=== PATIENT | female | born 1935 | race Caucasian/White ===

== ENCOUNTER 2017-10-12 20:34 | Inpatient (IN) | payer MEDICARE, OTHER ==
--- NOTE | 2017-10-12 20:42 | ERPHSYRPT ---
- History of Present Illness Time Seen by Provider: 10/12/17 20:34 Source: patient Exam Limitations: no limitations Physician History: YESTERDAY AT HOME PT WAS IN THE KITCHEN AND TURNED TO TALK TO HER WHEN SHE FELL BACKWARDS ONTO THE KITCHEN TABLE WITH RESULTANT BILATERAL HIP PAIN. PT DENIES CHEST PAIN, SHORTNESS OF AIR, TINGLING/NUMBNESS, WEAKNESS, ABDOMINAL PAIN. Allergies/Adverse Reactions: No Known Drug Allergies Allergy (Verified 10/12/17 20:57) Hx Tetanus, Diphtheria Vaccination/Date Given: Yes (unknown) Hx Influenza Vaccination/Date Given: No (unknown) Hx Pneumococcal Vaccination/Date Given: No (unknown) - Review of Systems Constitutional: No Fever, No Chills Respiratory: No Dyspnea Cardiac: No Chest Pain Abdominal/Gastrointestinal: No Abdominal Pain Musculoskeletal: Other (BILATERAL HIP PAIN) Neurological: No Headache All Other Systems: Reviewed and Negative - Past Medical History Pertinent Past Medical History: Yes Neurological History: Alzheimer's Disease, Dementia, TIA ENT History: Cataracts Cardiac History: Angina, Arrhythmia, Hypertension, Myocardial Infarction ([place]) Respiratory History: No Pertinent History Endocrine Medical History: Hypothyroidism Musculoskeletal History: Osteoarthritis GI Medical History: No Pertinent History History: No Pertinent History Psycho-Social History: Depression Female Reproductive Disorders: No Pertinent History Other Medical History: possible thyroid cancer (pt never followed up with dr) - Past Surgical History Past Surgical History: Yes Neuro Surgical History: No Pertinent History Cardiac: CABG, Cardiac Stent Respiratory: No Pertinent History Gastrointestinal: Hernia Repair Genitourinary: No Pertinent History Musculoskeletal: No Pertinent History Female Surgical History: No Pertinent History Other Surgical History: 3 hernia repairs - Social History Smoking Status: Former smoker Exposure to second hand smoke: No Drug Use: none Patient Lives Alone: No (lives at home with .) - Nursing Vital Signs Nursing Vital Signs: Initial Vital Signs Temperature 97.2 F 10/12/17 20:49 Pulse Rate 82 10/12/17 20:49 Respiratory Rate 18 10/12/17 20:49 Blood Pressure 198/110 10/12/17 20:49 O2 Sat by Pulse Oximetry 98 10/12/17 20:49 Pain Scale Pain Intensity 3 - [place] Coma Score Best Eye Response ([place]): (4) open spontaneously Best Verbal Response ([place]): (5) oriented Best Motor Response ([place]): (6) obeys commands [place] Total: 15 - Physical Exam General Appearance: alert Head Injury: no evidence of injury Eye Exam: eyes nml inspection ENT Exam: airway nml, nml ext.inspection, other (DRY mm), No decreased hearing Neck Exam: trachea midline Respiratory/Chest Exam: normal breath sounds Cardiovascular Exam: normal heart sounds Gastrointestinal Exam: soft, normal bowel sounds, hernia (LARGE ABDOMINAL HERNIA (ONGOING)) Back Exam: normal inspection, No vertebral tenderness Extremity Exam: normal range of motion, tenderness (MILD TENDERNESS OVER BOTH HIPS WITHOUT BRUISING OR ABRASION), No pedal edema Peripheral Pulses: dorsalis-pedis (R): 2+, dorsalis-pedis (L): 2+ Neurologic Exam: alert, cooperative Skin Exam: warm, dry - Course Nursing assessment & vital signs reviewed: Yes Ordered Tests: Active Orders 24 hr Category Date Time Status IV Insertion STAT Care 10/12/17 21:26 Active FEMUR Stat Exams 10/12/17 20:48 Taken FEMUR Stat Exams 10/12/17 22:47 Taken PELVIS (1 OR 2 VIEWS) Stat Exams 10/12/17 20:48 Taken PELVIS WITHOUT CONTRAST [CT] Stat Exams 10/12/17 22:08 Taken BMP Stat Lab 10/12/17 21:00 Completed CBC W DIFF Stat Lab 10/12/17 21:00 Completed UA W/ MICROSCOPIC Stat Lab 10/12/17 23:17 Completed Medication Summary Discontinued Medications Generic Name Dose Route Start Last Admin Trade Name Mathieu PRN Reason Stop Dose Admin Clonidine 0.1 mg 10/12/17 20:50 10/12/17 20:56 Catapres 0.1 Mg PO 10/12/17 20:51 0.1 mg STAT ONE Administration Clonidine Confirm 10/12/17 20:54 Catapres 0.1 Mg Administered 10/12/17 20:55 Dose 0.1 mg .ROUTE .STK-MED ONE Sodium Chloride 1,000 mls @ 999 mls/hr 10/12/17 21:26 10/12/17 22:06 Sodium Chloride 0.9% 1000 Ml IV 10/12/17 22:26 999 mls/hr .Q1H1M STA Administration Sodium Chloride Confirm 10/12/17 21:42 Sodium Chloride 0.9% 1000 Ml Administered 10/12/17 21:43 Dose 1,000 mls @ ud .ROUTE .STK-MED ONE Lab/Rad Data: Laboratory Result Diagrams 10/12/17 21:00 10/12/17 21:00 Laboratory Results 10/12/17 10/12/17 10/12/17 Range/Units 23:17 21:00 21:00 WBC 9.2 (4.0-10.5) K/mm3 RBC 4.75 (4.1-5.4) M/mm3 Hgb 13.3 (12.0-16.0) gm/dl Hct 41.3 (35-47) % MCV 86.9 (78-100) fl MCH 28.0 (26-32) pg MCHC 32.2 (32-36) g/dl RDW 14.0 (11.5-14.0) % Plt Count 264 (150-450) K/mm3 MPV 10.8 H (6-9.5) fl Gran % 79.3 H (36.0-66.0) % Lymphocytes % 11.3 L (24.0-44.0) % Monocytes % 8.5 (0.0-12.0) % Eosinophils % 0.8 (0.00-5.0) % Basophils % 0.1 (0.0-0.4) % Basophils # 0.01 (0-0.4) Sodium 138 (136-145) mEq/L Potassium 4.1 (3.5-5.1) mEq/L Chloride 102 (98-107) mEq/L Carbon Dioxide 26.4 (21-32) mEq/L Anion Gap 13.6 (5-15) MEQ/L BUN 49 H (9-20) mg/dL Creatinine 1.60 H (0.55-1.30) mg/dl Estimated GFR 33 ML/MIN Glucose 129 H (70-110) MG/DL Calcium 9.5 (8.5-10.1) mg/dL Ur Collection Type CATH Urine Color YELLOW (YELLOW) Urine Appearance CLEAR (CLEAR) Urine pH 5.0 (5-6) Ur Specific [place] 1.015 (1.005-1.025) Urine Protein TRACE (Negative) Urine Ketones NEGATIVE (NEGATIVE) Urine Blood NEGATIVE (0-5) Garth/ul Urine Nitrite NEGATIVE (NEGATIVE) Urine Bilirubin NEGATIVE (NEGATIVE) Urine Urobilinogen NORMAL (0-1) mg/dL Ur Leukocyte Esterase NEGATIVE (NEGATIVE) Urine Microscopic RBC 0-2 (0-2) /HPF Urine Microscopic WBC 0-2 (0-5) /HPF Ur Epithelial Cells FEW (FEW) /HPF Amorphous Crystals FEW (NEGATIVE) /HPF Urine Bacteria FEW (NEGATIVE) /HPF Urine Culture Reflexed NO (NO) Urine Glucose NEGATIVE (NEGATIVE) mg/dL Specimen Received 10/12/17 9878 - Progress Discussed with : Saúl (OBS - [id number]) - Departure Time of Disposition: 00:21 Departure Disposition: Observation Clinical Impression: PELVIC FRACTURE, DEHYDRATION, HTN, ALZHEIMER'S DISEASE, HYPOTHROIDISM, ARTHRITIS, DEPRESSION Condition: Stable Critical Care Time: No Referrals: SILVINO MILLER [Primary Care Provider] -
[2017-10-12] MEDS ORDERED: Catapres 0.1 MG PO ONE (20:50)
[2017-10-12] MEDS ORDERED: Catapres 0.1 MG ONE (20:54)
[2017-10-12 21:04] LABS: BASOPHIL % 0.1 % (0.0-0.4); Basophil (Absolute #) 0.01 (0-0.4); Eosinophil % 0.8 % (0.00-5.0); Eosinophil (Absolute #) 0.07 (0-0.5); Granulocyte Absolute (ANC) 7.28 (1.4-6.9); Granulocytes % 79.3 % (36.0-66.0); Hematocrit 41.3 % (35-47); Hemoglobin 13.3 gm/dl (12.0-16.0); Lymphocyte (Absolute #) 1.04 (1.0-4.6); Lymphocytes % 11.3 % (24.0-44.0); Mean Cell Volume 86.9 fl (78-100); Mean Corpuscular Hgb Concent. 32.2 g/dl (32-36); Mean Platelet Volume 10.8 fl (6-9.5); Monocyte (Absolute #) 0.78 (0.0-1.3); Monocytes % 8.5 % (0.0-12.0); Platelet Count 264 K/mm3 (150-450); Red Blood Count 4.75 M/mm3 (4.1-5.4); White Blood Count 9.2 K/mm3 (4.0-10.5)
[2017-10-12 21:19] LABS: ANION GAP 13.6 MEQ/L (5-15); Calcium 9.5 mg/dL (8.5-10.1); Carbon Dioxide 26.4 mEq/L (21-32); Creatinine 1 1.6 mg/dl (0.55-1.30); Potassium 4.1 mEq/L (3.5-5.1)
[2017-10-12] MEDS ORDERED: Sodium Chloride 0.9% 1000 ML 1,000 ML IV STA (21:26)
[2017-10-12] MEDS ORDERED: Sodium Chloride 0.9% 1000 ML 1,000 ML ONE (21:42)
[2017-10-12 23:29] LABS: Appearance CLEAR (CLEAR); Bilirubin NEGATIVE (NEGATIVE); Blood NEGATIVE Ery/ul (0-5); Glucose NEGATIVE (NEGATIVE); Ketones NEGATIVE (NEGATIVE); Leukocyte Esterase NEGATIVE (NEGATIVE); Nitrite NEGATIVE (NEGATIVE); Protein,Urine Dip TRACE (Negative); Specific Gravity 1.015 (1.005-1.025); Urobilinogen NORMAL mg/dL (0-1)
[2017-10-12 23:30] LABS: Amourphous Crystal FEW /HPF (NEGATIVE); Bacteria FEW /HPF (NEGATIVE); Epithelial Cells FEW /HPF (FEW); WBC 0-2 /HPF (0-5)
[2017-10-13] MEDS ORDERED: Phenergan 25 MG INJ IV PRN (02:07)
[2017-10-13] MEDS ORDERED: TYLENOL 325 MG PO PRN (02:07)
[2017-10-13] MEDS ORDERED: Sodium Chloride 0.9% 1000 ML 1,000 ML IV SCH (02:07)
[2017-10-13] MEDS: MORPHINE SULFATE 4 MG INJ IV PRN (03:19)
[2017-10-13 05:43] LABS: BASOPHIL % 0.3 % (0.0-0.4); Basophil (Absolute #) 0.02 (0-0.4); Eosinophil % 2.2 % (0.00-5.0); Eosinophil (Absolute #) 0.15 (0-0.5); Granulocyte Absolute (ANC) 5.02 (1.4-6.9); Granulocytes % 74.3 % (36.0-66.0); Hematocrit 35.4 % (35-47); Hemoglobin 11.3 gm/dl (12.0-16.0); Lymphocyte (Absolute #) 0.99 (1.0-4.6); Lymphocytes % 14.6 % (24.0-44.0); Mean Cell Volume 88.7 fl (78-100); Mean Corpuscular Hemoglobin 28.3 pg (26-32); Mean Corpuscular Hgb Concent. 31.9 g/dl (32-36); Mean Platelet Volume 11.2 fl (6-9.5); Monocyte (Absolute #) 0.58 (0.0-1.3); Monocytes % 8.6 % (0.0-12.0); Platelet Count 206 K/mm3 (150-450); Red Blood Count 3.99 M/mm3 (4.1-5.4); Red Cell Distribution Width 13.8 % (11.5-14.0); White Blood Count 6.8 K/mm3 (4.0-10.5)
[2017-10-13 06:27] LABS: ALBUMIN 2.9 g/dL (3.4-5.0); ANION GAP 10.5 MEQ/L (5-15); BILIRUBIN,TOTAL 0.7 mg/dL (0.2-1.0); Calcium 8.6 mg/dL (8.5-10.1); Carbon Dioxide 25.9 mEq/L (21-32); Creatinine 1 1.38 mg/dl (0.55-1.30); Potassium 4.1 mEq/L (3.5-5.1); Total Protein 6.7 gm/dL (6.4-8.2)
[2017-10-13] MEDS ORDERED: APRESOLINE 20 MG/ML INJ IV PRN (08:39)
--- NOTE | 2017-10-13 08:41 | XRAY ---
Indication: Pain following fall. Comparison: None 2 views of the right femur demonstrates osteopenia, moderate tricompartmental knee degenerative changes, heavy scattered vascular calcifications, scattered vascular clips, and CT proven right inferior pubic bone fracture.
--- NOTE | 2017-10-13 08:41 | XRAY ---
Indication: Pain following fall. Multiple contiguous axial images obtained through the pelvis with special attention to the osseous structures. Sagittal and coronal reformatted images obtained. Comparison: None There is osteopenia, mild degenerative changes of both hips, mild degenerative changes of the lower lumbar spine, and heavy scattered vascular calcifications. Nondisplaced fracture seen of the right inferior pubic ramus. Mild scattered colonic fecal debris and colonic diverticulosis. Impression: 1. Nondisplaced right inferior pubic ramus fracture. 2. Osteopenia, degenerative changes, and colonic diverticulosis. Comment: Preliminary interpretation was made by [facility]. No discrepancy. CTDI 18.53
--- NOTE | 2017-10-13 08:44 | XRAY ---
Indication: Pain following fall. Comparison: None Single AP pelvis demonstrates osteopenia, low lumbar degenerative changes, heavy scattered vascular calcifications, and CT proven right inferior pubic bone fracture.
--- NOTE | 2017-10-13 08:44 | XRAY ---
Indication: Pain following fall. Comparison: None 2 views of the left femur demonstrates osteopenia, mild tricompartmental knee degenerative changes, and heavy scattered vascular calcifications. No other bony, articular, or soft tissue abnormalities.
[2017-10-13] MEDS ORDERED: SYNTHROID 50 MCG PO SCH (10:00)
[2017-10-13] MEDS ORDERED: Lopressor 50 MG PO SCH (10:00)
[2017-10-13] MEDS ORDERED: ECOTRIN 81 MG PO SCH (10:00)
--- NOTE | 2017-10-13 10:05 | XRAY ---
Indication: Low back pain following fall. Comparison: None 5 views of the lumbar spine demonstrates 5 lumbar vertebral segments in normal alignment with age-related osteopenia and L3 superior endplate fracture of uncertain chronicity with approximately 50% height loss. Elsewhere mild L5-S1 degenerative disc disease as evidenced by disc space narrowing, endplate sclerosis/spurring, and bilateral facet arthropathy including minimal L5 spondylolisthesis without spondylolysis. Lesser degenerative changes seen of the lower thoracic spine. Extensive scattered vascular calcifications and tiny gallstones. Impression: 1. L3 superior endplate fracture of uncertain chronicity. 2. Osteopenia and multilevel degenerative spondylosis including minimal L5 grade 1 spondylolisthesis. 3. Incidental extensive vascular calcifications and gallstones.
--- NOTE | 2017-10-13 10:09 | HP ---
HISTORY OF PRESENT ILLNESS: This is a 81 year-old patient who presented to the emergency department reporting that she had a fall on 10/12/2017. She tells me that she stepped back to lean against the kitchen table and that the table gave way and she fell. She denies hitting her head. She denies any chest pain or palpitations before this happened. She denies any syncope. She reports she has pain in the small of her back and pain worse when she moves her right leg. In the emergency department she was found to have a pelvic fracture of her right inferior pubic ramus. She had other x-rays done but there is no report from the radiologist on these yet. She reports the pain medicine does help and she was able to sleep last night. The patient reports that she does have a walker and cane at home but that she does not use these. REVIEW OF SYSTEMS: She denies any dysuria. No abdominal pain. No constipation. No diarrhea. No cough. No rhinorrhea. No pain in her hip. She reports pain with trying to change positions. No rashes. PAST MEDICAL HISTORY: Vitamin B12 deficiency. Coronary artery disease. Hypothyroidism. History of acute renal failure that has resolved. History of diabetes mellitus type 2 currently diet controlled. PAST SURGICAL HISTORY: Hernia repair x3, bypass surgery with Dr. Nam. MEDICATIONS: From her clinic list: Tylenol 650 mg every four hours as needed, aspirin 81 mg p.o. daily, vitamin B12 1 ml injected every month, levothyroxine 50 mcg p.o. daily, metoprolol tartrate 50 mg p.o. b.i.d. and multivitamin 1 tablet p.o. daily. ALLERGIES: NKDA. SOCIAL HISTORY: She used to smoke but does not any longer. She lives with her . FAMILY HISTORY: Her mother had heart disease. Her father had diabetes. PHYSICAL EXAMINATION: VITAL SIGNS: Temperature current 98.6F, temperature max 98.6F, heart rate 75 to 94, respiratory rate 16 to 19, blood pressure 145 to 203 over 63 to 110, weight 71.2 kg. Oxygen saturation 93 to 98% on room air. GENERAL: The patient is lying in bed in no acute distress. She is alert and talkative. She is oriented to person, place. She said the year is 2013. 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 CVS: She has a regular rate and rhythm. No murmurs, gallops or rubs are appreciated. CHEST: Clear to auscultation bilaterally. No crackles or wheezes. ABDOMEN: Obese. There is a large hernia that is her baseline. No tenderness. No guarding. No rigidity. Normal bowel sounds. EXTREMITIES: No clubbing, cyanosis or edema. She has pain with movement of her right leg but she is able to move her leg. Pain with changing positions with automatic bed. SKIN: Warm, dry and intact. LABORATORY DATA AND TESTS: Hemoglobin on admission 13.3, repeat 11.3 today. Creatinine 1.38 today. Albumin 2.9, glucose 127. UA with trace protein otherwise negative. CT scan reported in the HPI showed pelvic and femur x-ray without formal reading yet. ASSESSMENT AND PLAN: 1) RIGHT PELVIC FRACTURE: Will ask PT to see her and will ask for orthopedic surgery consultation. I will continue with pain control. I have ordered hydrocodone that she can take by mouth and have discharge planning to help with disposition. The patient was encouraged to use her walker and her cane. 2) HYPERTENSION: I will restart her metoprolol and use hydralazine as needed. 3) HYPOTHYROIDISM: Will check her TSH and resume her levothyroxine. 4) VITAMIN B12 DEFICIENCY: She usually gets an injection every month. Will check her vitamin B12 level. 5) MEMORY PROBLEMS: She appears to be at her baseline at this time. 6) DEEP VENOUS THROMBOSIS PROPHYLAXIS: Will plan to use LOI hose.
[2017-10-13] MEDS: NORCO 5/325 MG PO PRN ×2 (10:12→21:30)
[2017-10-13] MEDS: THERAGRAN MULTIVITAMIN PO SCH (10:13)
[2017-10-13] MEDS: Lopressor 50 MG PO SCH (21:30)
[2017-10-13] MEDS: Ecotrin 325 MG PO SCH (21:30)
--- NOTE | 2017-10-14 08:27 | PCM.NOTE ---
Date and Time: 10/14/17820 Subjective Assessment: Patient reports that she has pain along her lower back. States she is in her home right now. She reports her appetite has been good. She denies constipation. Discharge planning report that she and her were agreeable to rehab at [facility]. The ER note says something about possible thyroid cancer. I have no knowledge of this. She has been following with Dr. Olson for severe Vit B 12 deficiency and he has never mentioned this either. - Review of Systems Constitutional: No Symptoms Respiratory: No Symptoms Cardiac: No Symptoms Abdominal/Gastrointestinal: No Symptoms Genitourinary Symptoms: No Symptoms Musculoskeletal: Back Pain Skin: No Symptoms Psychological: Memory Loss Objective Exam General Appearance: no apparent distress Neurologic Exam: other (Thinks she is at home this AM) Skin Exam: normal color, warm, dry Respiratory Exam: normal breath sounds, lungs clear, No crackles/rales, No rhonchi, No wheezing Cardiovascular Exam: regular rate/rhythm, normal heart sounds, No murmur, No friction rub, No gallop Gastrointestinal/Abdomen Exam: soft, normal bowel sounds, other (large abdominal wall hernia), No tenderness Extremity Exam: normal inspection, other (no c/c/e) OBJECTIVE DATA Vital Signs: Vital Signs - 24 hr Temp Pulse Resp BP Pulse Ox 10/14/17 07:14 98.2 F 62 20 128/76 93 L 10/14/17 04:00 98.6 F 55 L 18 123/77 90 L 10/14/17 00:00 98.3 F 60 18 149/80 92 L 10/13/17 20:00 98.1 F 63 18 180/110 94 L 10/13/17 16:00 98.6 F 76 16 158/72 94 L 10/13/17 11:20 98.4 F 74 16 160/80 96 Pain Assessment - Last Documented Pain Intensity 0 Pain Scale Used FLACC Intake and Output: Intake & Output 10/12/17 10/13/17 10/14/17 10/15/17 06:59 06:59 06:59 06:59 Intake Total 640 Balance 640 Weight 71 kg Radiology Exams: Radiology Procedures Category Date Time Status LUMBAR LIMITED (2 OR 3 VIEWS) Routine Exams 10/13/17 09:51 Completed Multi-Disciplinary Progress Notes: Multi-Disciplinary Progress Notes 10/13/17 12:49 Case Management Note by Kimmy Gill LEVEL I WEB APPROVED, NO LEVEL II REQUIRED. FAXED TO [facility] AND PLACED ON PT CHART. Initialized on 10/13/17 12:49 - END OF NOTE 10/13/17 12:00 (created 10/13/17 12:27) Case Management Note by Mare Sepulveda DISCHARGE PLAN REVIEWED WITH PT'S , RUDOLPH AT THIS TIME. RUDOLPH REPORTS THAT PT HAS BEEN FALLING ALOT AT HOME. REPORTS THAT HE HAS LEFT THE ROOM AND COME BACK TO FIND HER ON THE FLOOR SEVERAL TIMES. REPORTS THAT HE IS HAVING A HARD TIME CARING FOR HER AND ALSO, REPORTS THAT SHE IS ABOUT TO GET HIM DOWN. DISCUSSED SUPPORT SERVICES FOR DISCHARGE. REPORTS THAT HE IS GOING TO DISCUSS WITH HIS GOING TO REHAB ON DISCHARGE, HE FEELS THAT SHE COULD BENEFIT [facility] PT/OT SERVICES AND NURSING CARE. REQUESTS REFERRAL TO [facility] AT THIS TIME. REPORTS THAT THEY HAVE TRIED [facility] IN THE PAST, BUT THAT PT DID NOT GET ALONG WELL THERE. WILL CONTINUE TO FOLLOW AND ASSESS FOR ALL DC NEEDS. Initialized on 10/13/17 12:27 - END OF NOTE 10/13/17 10:30 (created 10/13/17 12:24) Case Management Note by Mare Sepulveda DISCHARGE PLAN REVIEWED WITH PT, REPORTS THAT SHE LIVES AT HOME WITH , PROVIDES SELF CARE, AND IS NORMALLY INDEPENDENT WITH ALL ADL'S. REPORTS THAT CAN ASSIST IF NEEDED. DID DISCUSS HHC SERVICES VS [facility]. PT DECLINED NEED FOR REHAB STAY. REPORTS THAT SHE WOULD BE WILLING TO HAVE HHC SERVICES ON DISCHARGE. REPORTS THAT SHE HAS A WALKER AT HOME, BUT DOES NOT NORMALLY NEED. WILL CONTINUE TO FOLLOW FOR ALL DC NEEDS. Initialized on 10/13/17 12:24 - END OF NOTE Assessment/Plan (1) Pelvic fracture Current Visit: Yes Status: Acute Assessment & Plan: Orthopedic surgeon consulted, Dr. Ross, and he plans to see patient as an outpatient on 11/07/17 and recommended aspirin 325 mg po bid. Continue hydrocodone /acetaminophen as needed for pain and morphine IV for severe pain. PT has seen patient. Fall precautions. Code(s): S32.9XXA - FRACTURE OF UNSP PARTS OF LUMBOSACRAL SPINE AND PELVIS, INIT (2) L3 vertebral fracture Current Visit: Yes Status: Acute Assessment & Plan: Management as above. Code(s): S32.039A - UNSP FRACTURE OF THIRD LUMBAR VERTEBRA, INIT FOR CLOS FX (3) Essential hypertension Current Visit: Yes Status: Acute Assessment & Plan: Better controlled with raising metoprolol. Continue current dose of antihypertensive. Code(s): I10 - ESSENTIAL (PRIMARY) HYPERTENSION (4) Dementia Current Visit: No Status: Acute Assessment & Plan: Patient more confused today. Code(s): F03.90 - UNSPECIFIED DEMENTIA WITHOUT BEHAVIORAL DISTURBANCE (5) Coronary artery disease Current Visit: No Status: Acute Assessment & Plan: Stable, continue current medications. Code(s): I25.10 - ATHSCL HEART DISEASE OF [place] CORONARY ARTERY W/O ANG PCTRS (6) Vitamin B 12 deficiency Current Visit: Yes Status: Acute Assessment & Plan: Will try to clarify with her or Dr. Olson when her last Vit B 12 injection was. Code(s): E53.8 - DEFICIENCY OF OTHER SPECIFIED B GROUP VITAMINS
[2017-10-14] MEDS ORDERED: Cyanocobalamin B-12 1000 MCG/ML SQ SCH (09:30)
[2017-10-14] MEDS ORDERED: MEDICATION INTERVENTION MC PRN (09:36)
[2017-10-14] MEDS: NORCO 5/325 MG PO PRN ×3 (10:01→23:47)
[2017-10-14] MEDS: THERAGRAN MULTIVITAMIN PO SCH (10:02)
[2017-10-14] MEDS: Ecotrin 325 MG PO SCH ×2 (10:02→21:13)
[2017-10-14] MEDS: Colace 100 MG PO SCH ×2 (10:03→21:13)
[2017-10-14] MEDS: SYNTHROID 75 MCG PO SCH (10:03)
[2017-10-14] MEDS: Lopressor 50 MG PO SCH ×2 (10:06→21:13)
[2017-10-14] MEDS ORDERED: PHARMACY DOSING REQUEST MC ONE (11:54)
[2017-10-15 06:18] LABS: BASOPHIL % 0.3 % (0.0-0.4); Basophil (Absolute #) 0.02 (0-0.4); Eosinophil % 2.8 % (0.00-5.0); Eosinophil (Absolute #) 0.18 (0-0.5); Granulocyte Absolute (ANC) 5.01 (1.4-6.9); Granulocytes % 76.7 % (36.0-66.0); Hemoglobin 12.3 gm/dl (12.0-16.0); Lymphocyte (Absolute #) 0.83 (1.0-4.6); Lymphocytes % 12.7 % (24.0-44.0); Mean Cell Volume 87.8 fl (78-100); Mean Corpuscular Hemoglobin 28.4 pg (26-32); Mean Corpuscular Hgb Concent. 32.4 g/dl (32-36); Mean Platelet Volume 11.3 fl (6-9.5); Monocyte (Absolute #) 0.49 (0.0-1.3); Monocytes % 7.5 % (0.0-12.0); Platelet Count 239 K/mm3 (150-450); Red Blood Count 4.33 M/mm3 (4.1-5.4); Red Cell Distribution Width 13.9 % (11.5-14.0); White Blood Count 6.5 K/mm3 (4.0-10.5)
[2017-10-15 06:38] LABS: ANION GAP 11.8 MEQ/L (5-15); Calcium 8.8 mg/dL (8.5-10.1); Carbon Dioxide 25.6 mEq/L (21-32); Creatinine 1 1.4 mg/dl (0.55-1.30); Potassium 3.9 mEq/L (3.5-5.1)
--- NOTE | 2017-10-15 08:39 | PCM.NOTE ---
Date and Time: 10/15/17833 Subjective Assessment: She continues to think that she is at home. When I told her she was at the hospital, she stated this place did not look like a hospital. She continues to have pain along her lower back. She required one dose of hydralazine last night for high blood pressure. She reports she has not had a stool but does not feel constipated. - Review of Systems Constitutional: No Symptoms Respiratory: No Symptoms Cardiac: No Symptoms Abdominal/Gastrointestinal: No Symptoms Genitourinary Symptoms: No Symptoms Musculoskeletal: Other (back pain) Skin: No Symptoms Objective Exam General Appearance: no apparent distress Neurologic Exam: alert, cooperative, other (oriented to person, thinks she is at home in [place], [place] and that the year is 2019.) Respiratory Exam: normal breath sounds, lungs clear, No prolonged expirations, No crackles/rales, No rhonchi Cardiovascular Exam: regular rate/rhythm, normal heart sounds, No murmur, No friction rub, No gallop Gastrointestinal/Abdomen Exam: soft, normal bowel sounds, other (large abdominal wall hernia, no tenderness), No tenderness, No distention, No mass Extremity Exam: other (no c/c/e) OBJECTIVE DATA Vital Signs: Vital Signs - 24 hr Temp Pulse Resp BP Pulse Ox 10/15/17 07:12 98.6 F 74 18 133/67 97 10/15/17 04:00 99.1 F 69 18 137/70 97 10/15/17 00:30 190/92 10/15/17 00:00 98.6 F 62 18 197/96 94 L 10/14/17 20:00 97.9 F 57 L 19 155/82 94 L 10/14/17 16:20 97.6 F 64 18 118/58 97 10/14/17 12:30 98 F 68 20 126/74 95 Pain Assessment - Last Documented Pain Intensity 8 Pain Scale Used 0-10 Pain Scale Intake and Output: Intake & Output 10/13/17 10/14/17 10/15/17 10/16/17 06:59 06:59 06:59 06:59 Intake Total 640 540 Output Total 450 Balance 640 90 Weight 71 kg 70.9 kg Lab Results: Lab Results-Last 24 Hours 10/15/17 10/15/17 Range/Units 05:45 05:45 WBC 6.5 (4.0-10.5) K/mm3 RBC 4.33 (4.1-5.4) M/mm3 Hgb 12.3 (12.0-16.0) gm/dl Hct 38.0 (35-47) % MCV 87.8 (78-100) fl MCH 28.4 (26-32) pg MCHC 32.4 (32-36) g/dl RDW 13.9 (11.5-14.0) % Plt Count 239 (150-450) K/mm3 MPV 11.3 H (6-9.5) fl Gran % 76.7 H (36.0-66.0) % Lymphocytes % 12.7 L (24.0-44.0) % Monocytes % 7.5 (0.0-12.0) % Eosinophils % 2.8 (0.00-5.0) % Basophils % 0.3 (0.0-0.4) % Basophils # 0.02 (0-0.4) Sodium 139 (136-145) mEq/L Potassium 3.9 (3.5-5.1) mEq/L Chloride 105 (98-107) mEq/L Carbon Dioxide 25.6 (21-32) mEq/L Anion Gap 11.8 (5-15) MEQ/L BUN 36 H (9-20) mg/dL Creatinine 1.40 H (0.55-1.30) mg/dl Estimated GFR 39 ML/MIN Glucose 132 H (70-110) MG/DL Calcium 8.8 (8.5-10.1) mg/dL Radiology Exams: Radiology Procedures Category Date Time Status LUMBAR LIMITED (2 OR 3 VIEWS) Routine Exams 10/13/17 09:51 Completed Multi-Disciplinary Progress Notes: Multi-Disciplinary Progress Notes 10/14/17 09:12 Case Management Note by Kimmy Gill S/[facility] AT [facility], THEY HAVE A PLACE FOR THE PATIENT ON HER DISCHARGE FROM OUR FACILITY. Initialized on 10/14/17 09:12 - END OF NOTE Assessment/Plan (1) Pelvic fracture Current Visit: Yes Status: Acute Assessment & Plan: Continue with pain management and PT. Plan for her to follow up with the orthopedic surgeon as an outpatient and to have rehab at [facility]. Vit D level ordered. Code(s): S32.9XXA - FRACTURE OF UNSP PARTS OF LUMBOSACRAL SPINE AND PELVIS, INIT (2) L3 vertebral fracture Current Visit: Yes Status: Acute Assessment & Plan: Management as above. Code(s): S32.039A - UNSP FRACTURE OF THIRD LUMBAR VERTEBRA, INIT FOR CLOS FX (3) Essential hypertension Current Visit: Yes Status: Acute Assessment & Plan: Continue metoprolol and will add amlodipine today. Continue hydralazine as needed prn. Code(s): I10 - ESSENTIAL (PRIMARY) HYPERTENSION (4) Dementia Current Visit: No Status: Acute Assessment & Plan: She continues to not be oriented to place today. She is cooperative. Code(s): F03.90 - UNSPECIFIED DEMENTIA WITHOUT BEHAVIORAL DISTURBANCE (5) Coronary artery disease Current Visit: No Status: Acute Assessment & Plan: Continue current medication. Will check her fasting lipid profile in the AM. Code(s): I25.10 - ATHSCL HEART DISEASE OF [place] CORONARY ARTERY W/O ANG PCTRS (6) Vitamin B 12 deficiency Current Visit: Yes Status: Acute Assessment & Plan: She is due for her next Vit B 12 injection later this month. Her last one was . Code(s): E53.8 - DEFICIENCY OF OTHER SPECIFIED B GROUP VITAMINS
[2017-10-15] MEDS: NORCO 5/325 MG PO PRN ×2 (09:23→15:13)
[2017-10-15] MEDS: THERAGRAN MULTIVITAMIN PO SCH (09:23)
[2017-10-15] MEDS: SYNTHROID 75 MCG PO SCH (09:23)
[2017-10-15] MEDS: Ecotrin 325 MG PO SCH ×2 (09:23→21:35)
[2017-10-15] MEDS: Colace 100 MG PO SCH ×2 (09:23→21:35)
[2017-10-15] MEDS: NORVASC 5 MG PO SCH (09:25)
[2017-10-15] MEDS: Lopressor 50 MG PO SCH ×2 (09:25→21:35)
[2017-10-16] MEDS: NORCO 5/325 MG PO PRN ×2 (07:46→12:40)
[2017-10-16] MEDS: Colace 100 MG PO SCH (07:47)
[2017-10-16] MEDS: SYNTHROID 75 MCG PO SCH (07:47)
[2017-10-16] MEDS: THERAGRAN MULTIVITAMIN PO SCH (07:47)
[2017-10-16] MEDS: Lopressor 50 MG PO SCH (07:47)
[2017-10-16] MEDS: Ecotrin 325 MG PO SCH (07:47)
[2017-10-16] MEDS: NORVASC 5 MG PO SCH (07:47)
[2017-10-16] MEDS ORDERED: SENOKOT 8.6 MG PO PRN (08:19)
--- NOTE | 2017-10-16 08:31 | PCM.DCORD ---
- Discharge Discharge Date: 10/16/17 Disposition: Skilled Care @ [facility] Condition: Fair Prescriptions: New Docusate Sodium 100 mg [Colace 100 MG] 100 mg PO BID capsule Cyanocobalamin 1000 Mcg/ml [Cyanocobalamin B-12 1000 MCG/ML] 1,000 mcg IM Q30D vial Aspirin EC 325 mg [Ecotrin 325 MG] 325 mg PO BID tablet.ec Hydrocodone Bit/Acetaminophen [Hydrocodon-Acetaminophen 5-325] 1 tablet PO Q6H PRN #30 tablet MDD 4 PRN Reason: Pain Metoprolol Tartrate 50 mg [Lopressor 50 MG] 100 mg PO BID tablet Amlodipine Besylate 5 mg [Norvasc 5 mg] 5 mg PO QAM tablet Senna 8.6 mg [Senokot 8.6 mg] 8.6 mg PO DAILY PRN tablet PRN Reason: Constipation Levothyroxine Sodium 75 Mcg [Synthroid 75 Mcg] 75 mcg PO DAILY tablet Multivitamins,Therapeutic Tab* [Theragran Multivitamin] 1 tab PO QAM tab Acetaminophen 325 mg [Tylenol 325 mg] 650 mg PO Q4H PRN PRN tablet PRN Reason: Pain And/Or Fever Discontinued Cyanocobalamin 1000 Mcg/ml [Cyanocobalamin B-12 1000 MCG/ML] 1,000 mcg SQ UD #0 vial Aspirin EC 325 mg [Ecotrin 325 MG] 325 mg PO QAM #0 tablet.ec Metoprolol Tartrate 25 mg [Lopressor 25MG Tab] 25 mg PO BID #0 tab Acetaminophen 325 mg [Tylenol 325 mg] 650 mg PO Q4H PRN PRN #0 tablet PRN Reason: Pain And/Or Fever Additional Instructions: Follow up with at [facility] on 11/07/17 @ 11:20 p.m. please come at least 15 minutes early to fill out paper work.weight bearing as tolerated with No restrictions. PT/OT evaluation and treatment. Last vitamin B 12 injection was 09/27/17. This monthly Vit B 12 injection is very important for Mrs. Miller as she has a history of severe, life threatening Vit B 12 deficiency. Follow up with: CRISTELA ROBLES MD [COURTESY STAFF] - 11/07/17 11:20 am (specialty clinic ) SILVINO MILLER [Primary Care Provider] -
[2017-10-16] MEDS: MORPHINE SULFATE 4 MG INJ IV PRN (08:59)
[2017-10-16 11:28] VITALS: BP 172/79; PULSE 61; O2SAT 98
--- NOTE | 2017-10-20 15:13 | DS ---
DISCHARGE DIAGNOSES: 1) PELVIC FRACTURE ON RIGHT SIDE. 2) L3 VERTEBRAL FRACTURE. 3) ESSENTIAL HYPERTENSION. 4) DEMENTIA. 5) CORONARY ARTERY DISEASE. 6) VITAMIN B12 DEFICIENCY. 7) HYPOTHYROIDISM. DISCHARGE PHYSICAL EXAMINATION: VITALS: Temperature current 98.6F, temperature max 98.6F, heart rate 54 to 67, respiratory rate 16 to 20, blood pressure 147 to 178 over 74 to 97, weight 68.3 kg. Oxygen saturation 92 to 96% on room air. GENERAL: The patient is sitting up in bed a pleasant, alert, pleasant in no acute distress. She is eating her breakfast. CVS: She has a regular rate and rhythm. No murmurs, gallops or rubs are appreciated. CHEST: Clear to auscultation bilaterally. No crackles or wheezes. ABDOMEN: Soft, nontender, nondistended with normal bowel sounds. EXTREMITIES: No clubbing, cyanosis or edema. SKIN: Warm, dry and intact. HOSPITAL COURSE: 1) PELVIC FRACTURE: Orthopedic surgeon, Dr. Ross, was consulted and called and said he would see her as an outpatient, this appointment has been set up for her. She had her pain controlled with oral hydrocodone. She has not needed any IV morphine since Friday. The patient reports that she continues to have lower back pain. She denies feeling constipated although she has not had any stools. She has been seen by PT here and they recommend continued PT so will plan for her to continue with PT and OT at [facility]. 2) L3 VERTEBRAL FRACTURE: This has been taken of as above. The orthopedic surgeon also started aspirin 325 mg p.o. b.i.d. She was started on this once a day for history of heart problems. 3) ESSENTIAL HYPERTENSION: Her blood pressure was high especially at the first part of her hospitalization. Her blood pressure medicine was adjusted. She is currently on metoprolol 100 mg p.o. b.i.d. with heart rate just below 60 and amlodipine 5 mg p.o. daily was also started. Continue with these and follow her blood pressure. 4) DEMENTIA: She continued not to be oriented to place during her hospitalization. She was very cooperative her entire hospitalization. 5) CORONARY ARTERY DISEASE: The fasting lipid profile was normal. Will continue with aspirin and beta srini. I am holding off of HIMA inhibitor due to some renal insufficiency. 6) VITAMIN B12 DEFICIENCY: Her told her that her last vitamin B12 injection was 09/27/2017. She gets one every month this is very important for her because she had life-threatening vitamin B12 deficiency with severe anemia in the past that resolved with continued treatment so she will need continued monthly vitamin B12 injection. 7) HYPOTHYROIDISM: Her TSH was checked and was slightly high and so her Synthroid was increased from 150 mcg to 75 mcg. DISCHARGE MEDICATIONS: Docusate 100 mg p.o. b.i.d., vitamin B12 1,000 mcg IM every 30 days, aspirin 325 mg p.o. b.i.d., hydrocodone/acetaminophen 5/325 mg 1 tablet p.o. every six hours as needed #30 with no refills, metoprolol tartrate 100 mg p.o. b.i.d., amlodipine 5 mg p.o. q.a.m., Senna 8.6 mg p.o. daily as needed for constipation, levothyroxine 75 mcg p.o. daily, multivitamin 1 tablet p.o. daily, Tylenol 650 mg p.o. every four hours as needed. FOLLOW UP: She is to follow up with me in the clinic and Dr. Ross set up for 11/07/2017 at 1120 hours. If she would prefer to follow up with Dr. Camp at [facility] that is fine as well. DISPOSITION: The patient was discharged to [facility] in fair condition.
[2017-10-25] MEDS ORDERED: Cyanocobalamin B-12 1000 MCG/ML IM SCH (10:00)
== END 2017-10-16 12:40 | DRG 536 ==
LOC: ED 20:34 → MED SURG 10-13 02:03 → OBSVTOIN 10-13 08:25
PROVIDERS: ADMIT Internal Medicine; ATTEND Internal Medicine
DX: S32.9XXA Fracture of unspecified parts of lumbosacral spine and pelvis, initial encounter for closed fracture (principal); S32.039A Unspecified fracture of third lumbar vertebra, initial encounter for closed fracture; E86.0 Dehydration; W18.39XA Other fall on same level, initial encounter; G30.9 Alzheimer's disease, unspecified; F02.80 Dementia in other diseases classified elsewhere, unspecified severity, without behavioral disturbance, psychotic disturbance, mood disturbance, and anxiety; I10 Essential (primary) hypertension; M19.90 Unspecified osteoarthritis, unspecified site; F32.9 Major depressive disorder, single episode, unspecified; M25.552 Pain in left hip; M25.551 Pain in right hip; I25.2 Old myocardial infarction; F03.90 Unspecified dementia, unspecified severity, without behavioral disturbance, psychotic disturbance, mood disturbance, and anxiety; I25.10 Atherosclerotic heart disease of native coronary artery without angina pectoris; E53.8 Deficiency of other specified B group vitamins; E03.9 Hypothyroidism, unspecified; E11.9 Type 2 diabetes mellitus without complications; Z79.899 Other long term (current) drug therapy
CPT/HCPCS: 36000; 36415; 72100; 72170; 72192; 73552; 80048; 80053; 80061; 81000; 82306; 82607; 83721; 84443; 85025; 96360; 99285; J0360; J2270; P9612; 97110-GP; A9270-GY

== ENCOUNTER 2018-05-12 12:33 | Observation (INO) | payer MEDICARE, OTHER ==
--- NOTE | 2018-05-12 12:46 | ERPHSYRPT ---
- History of Present Illness Time Seen by Provider: 05/12/18 12:37 Source: EMS Exam Limitations: no limitations Physician History: The patient is an 82-year-old female brought in by ambulance from home where she is having problems breathing taking care of by her . She was soaked in urine and had fecal material on her feet. She has Alzheimer's and has no complaints. Her past medical history significant for Alzheimer's, CAD, CABG, HTN, and hypothyroidism. Timing/Duration: today Severity: severe Character of Deficits: other (confusion) Deficits: no difficulties Baseline/Normal Cognition: alert but confused Current Cognition: alert but confused Associated Symptoms: confusion Allergies/Adverse Reactions: No Known Drug Allergies Allergy (Verified 05/12/18 13:02) Home Medications: Aspirin 81 gm Chew [Baby Aspirin 81 mg Chew] 1 tab PO DAILY 05/12/18 [ History] Ergocalciferol (Vitamin D2) [Vitamin D2] 50,000 unit PO Q7D 05/12/18 [History] Metoprolol Tartrate 25 mg [Lopressor 25MG Tab] 25 mg PO BID 05/12/18 [ History] Warfarin Sodium 2 mg [Coumadin 2 MG] 2 mg PO 05/12/18 [History] Warfarin Sodium 3 mg [Coumadin 3 MG] 1 tab PO 05/12/18 [History] Hx Tetanus, Diphtheria Vaccination/Date Given: Yes (unknown) Hx Influenza Vaccination/Date Given: No (unknown) Hx Pneumococcal Vaccination/Date Given: No (unknown) - Review of Systems Constitutional: No Fever, No Chills Eyes: No Symptoms Ears, Nose, & Throat: No Symptoms Respiratory: No Cough, No Dyspnea Cardiac: No Chest Pain, No Edema, No Syncope Abdominal/Gastrointestinal: No Abdominal Pain, No Nausea, No Vomiting, No Diarrhea Genitourinary Symptoms: No Dysuria Musculoskeletal: No Back Pain, No Neck Pain Skin: No Rash Neurological: No Dizziness, No Focal Weakness, No Sensory Changes Psychological: No Symptoms Endocrine: No Symptoms Hematologic/Lymphatic: No Symptoms Immunological/Allergic: No Symptoms All Other Systems: Reviewed and Negative - Past Medical History Pertinent Past Medical History: Yes Neurological History: Alzheimer's Disease, Dementia, TIA ENT History: Cataracts Cardiac History: Angina, Arrhythmia, Hypertension, Myocardial Infarction (CA) Respiratory History: No Pertinent History Endocrine Medical History: Hypothyroidism Musculoskeletal History: Osteoarthritis GI Medical History: Hernia History: No Pertinent History Psycho-Social History: Depression Female Reproductive Disorders: No Pertinent History Other Medical History: possible thyroid cancer (pt never followed up with dr) - Past Surgical History Past Surgical History: Yes Neuro Surgical History: No Pertinent History Cardiac: CABG, Cardiac Stent Respiratory: No Pertinent History Gastrointestinal: Hernia Repair Genitourinary: No Pertinent History Musculoskeletal: No Pertinent History Female Surgical History: No Pertinent History Other Surgical History: 3 hernia repairs - Social History Smoking Status: Never smoker Exposure to second hand smoke: No Drug Use: none Patient Lives Alone: No (lives at home with .) - Nursing Vital Signs Nursing Vital Signs: Initial Vital Signs Temperature 98.9 F 05/12/18 12:40 Pulse Rate 76 05/12/18 12:40 Respiratory Rate 18 05/12/18 12:40 Blood Pressure 171/74 05/12/18 12:40 O2 Sat by Pulse Oximetry 98 05/12/18 12:40 Pain Scale Pain Intensity 0 - Hilton Coma Scale Best Eye Response (Ameena): (4) open spontaneously Best Verbal Response (Hilton): (5) oriented Best Motor Response (Ameena): (6) obeys commands Ameena Total: 15 - Physical Exam General Appearance: no apparent distress, alert Eye Exam: bilateral eye: PERRL, EOMI Ears, Nose, Throat Exam: normal ENT inspection, moist mucous membranes Neck Exam: normal inspection, non-tender, supple Respiratory: normal breath sounds, lungs clear, airway intact, No respiratory distress Cardiovascular: regular rate/rhythm, No edema Gastrointestinal: soft, No tenderness, No distention Pelvic Exam: not done Rectal Exam: not done Back Exam: normal inspection Extremity Exam: normal inspection, No pedal edema Mental Status: alert, 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 x 3 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 Exam: tongue midline Coordination/Gait: normal gait Motor/Sensory: no motor deficit Skin Exam: normal color, warm, dry, No rash SpO2 Interpretation: normal Oxygen Delivery: Room Air - Course EKG Interpreted by Me: RATE, Sinus Rhythm, NORMAL INTERVALS, NORMAL QRS, NORMAL ST-T - Radiology Exams Chest X-ray Interpretation: Reviewed by me, Teleradiologist Report (per Dr Rae), Negative Ordered Tests: Active Orders 24 hr Category Date Time Status Cath for Specimen-Straight STAT Care 05/12/18 12:50 Active EKG-ER Only STAT Care 05/12/18 12:49 Active IV Insertion STAT Care 05/12/18 12:49 Active CHEST 1 VIEW (PORTABLE) Stat Exams 05/12/18 12:50 Completed CBC W DIFF Stat Lab 05/12/18 12:50 Completed CMP Stat Lab 05/12/18 12:50 Completed Lactic Acid Stat Lab 05/12/18 12:49 Completed TROPONIN Q3H Lab 05/12/18 12:50 Completed TROPONIN Q3H Lab 05/12/18 16:00 Ordered TROPONIN Q3H Lab 05/12/18 19:00 Ordered TROPONIN Q3H Lab 05/12/18 22:00 Ordered TROPONIN Q3H Lab 05/13/18 01:00 Ordered UA W/RFX UR CULTURE Stat Lab 05/12/18 13:14 Completed Lab/Rad Data: Laboratory Result Diagrams 05/12/18 12:50 05/12/18 12:50 Laboratory Results 05/12/18 05/12/18 05/12/18 Range/Units 13:14 12:50 12:50 WBC (4.0-10.5) K/mm3 RBC (4.1-5.4) M/mm3 Hgb (12.0-16.0) gm/dl Hct (35-47) % MCV (78-100) fl MCH (26-32) pg MCHC (32-36) g/dl RDW (11.5-14.0) % Plt Count (150-450) K/mm3 MPV (6-9.5) fl Gran % (36.0-66.0) % Eos # (Auto) (0-0.5) Absolute Lymphs (auto) (1.0-4.6) Absolute Monos (auto) (0.0-1.3) Lymphocytes % (24.0-44.0) % Monocytes % (0.0-12.0) % Eosinophils % (0.00-5.0) % Basophils % (0.0-0.4) % Absolute Granulocytes (1.4-6.9) Basophils # (0-0.4) Sodium 140 (137-145) mmol/L Potassium 4.1 (3.5-5.1) mmol/L Chloride 101 (98-107) mmol/L Carbon Dioxide 27 (22-30) mmol/L Anion Gap 15.7 H (5-15) MEQ/L BUN 40 H (7-17) mg/dL Creatinine 1.92 H (0.52-1.04) mg/dL Estimated GFR 26.7 ML/MIN Glucose 116 H (74-106) mg/dL Lactic Acid (0.4-2.0) Calcium 9.6 (8.4-10.2) mg/dL Total Bilirubin 0.80 (0.2-1.3) mg/dL AST 22 (14-36) U/L ALT 15 (0-35) U/L Alkaline Phosphatase 92 (38-126) U/L Troponin I 0.013 (0.000-0.034) ng/mL Serum Total Protein 8.0 (6.3-8.2) g/dL Albumin 4.4 (3.5-5.0) g/dL Ur Collection Type VOID Urine Color YELLOW (YELLOW) Urine Appearance CLEAR (CLEAR) Urine pH 8.0 (5-6) Ur Specific [place] 1.005 (1.005-1.025) Urine Protein NEGATIVE (Negative) Urine Ketones NEGATIVE (NEGATIVE) Urine Blood NEGATIVE (0-5) Garth/ul Urine Nitrite NEGATIVE (NEGATIVE) Urine Bilirubin NEGATIVE (NEGATIVE) Urine Urobilinogen NORMAL (0-1) mg/dL Ur Leukocyte Esterase NEGATIVE (NEGATIVE) Urine Culture Reflexed NO (NO) Urine Glucose NEGATIVE (NEGATIVE) mg/dL Specimen Received 05/12/18 1330 05/12/18 05/12/18 Range/Units 12:50 12:49 WBC 5.4 (4.0-10.5) K/mm3 RBC 4.25 (4.1-5.4) M/mm3 Hgb 12.3 (12.0-16.0) gm/dl Hct 37.2 (35-47) % MCV 87.5 (78-100) fl MCH 28.9 (26-32) pg MCHC 33.1 (32-36) g/dl RDW 14.8 H (11.5-14.0) % Plt Count 300 (150-450) K/mm3 MPV 11.3 H (6-9.5) fl Gran % 70.7 H (36.0-66.0) % Eos # (Auto) 0.19 (0-0.5) Absolute Lymphs (auto) 1.03 (1.0-4.6) Absolute Monos (auto) 0.34 (0.0-1.3) Lymphocytes % 19.1 L (24.0-44.0) % Monocytes % 6.3 (0.0-12.0) % Eosinophils % 3.5 (0.00-5.0) % Basophils % 0.4 (0.0-0.4) % Absolute Granulocytes 3.81 (1.4-6.9) Basophils # 0.02 (0-0.4) Sodium (137-145) mmol/L Potassium (3.5-5.1) mmol/L Chloride (98-107) mmol/L Carbon Dioxide (22-30) mmol/L Anion Gap (5-15) MEQ/L BUN (7-17) mg/dL Creatinine (0.52-1.04) mg/dL Estimated GFR ML/MIN Glucose (74-106) mg/dL Lactic Acid 0.9 (0.4-2.0) Calcium (8.4-10.2) mg/dL Total Bilirubin (0.2-1.3) mg/dL AST (14-36) U/L ALT (0-35) U/L Alkaline Phosphatase (38-126) U/L Troponin I (0.000-0.034) ng/mL Serum Total Protein (6.3-8.2) g/dL Albumin (3.5-5.0) g/dL Ur Collection Type Urine Color (YELLOW) Urine Appearance (CLEAR) Urine pH (5-6) Ur Specific [place] (1.005-1.025) Urine Protein (Negative) Urine Ketones (NEGATIVE) Urine Blood (0-5) Garth/ul Urine Nitrite (NEGATIVE) Urine Bilirubin (NEGATIVE) Urine Urobilinogen (0-1) mg/dL Ur Leukocyte Esterase (NEGATIVE) Urine Culture Reflexed (NO) Urine Glucose (NEGATIVE) mg/dL Specimen Received - Progress Progress: unchanged Discussed with : Pasquale Will see patient in: hospital (observation) (per Dr Miller) Counseled pt/family regarding: lab results, diagnosis, rad results - Departure Time of Disposition: 14:32 Departure Disposition: Observation (per Dr Miller) Clinical Impression: Acute renal failure, Alzheimer's dementia Condition: Stable Critical Care Time: No Referrals: SILVINO MILLER [Primary Care Provider] -
[2018-05-12 12:58] LABS: BASOPHIL % 0.4 % (0.0-0.4); Basophil (Absolute #) 0.02 (0-0.4); Eosinophil % 3.5 % (0.00-5.0); Eosinophil (Absolute #) 0.19 (0-0.5); Granulocyte Absolute (ANC) 3.81 (1.4-6.9); Granulocytes % 70.7 % (36.0-66.0); Hematocrit 37.2 % (35-47); Hemoglobin 12.3 gm/dl (12.0-16.0); Lymphocyte (Absolute #) 1.03 (1.0-4.6); Lymphocytes % 19.1 % (24.0-44.0); Mean Cell Volume 87.5 fl (78-100); Mean Corpuscular Hemoglobin 28.9 pg (26-32); Mean Corpuscular Hgb Concent. 33.1 g/dl (32-36); Mean Platelet Volume 11.3 fl (6-9.5); Monocyte (Absolute #) 0.34 (0.0-1.3); Monocytes % 6.3 % (0.0-12.0); Platelet Count 300 K/mm3 (150-450); Red Blood Count 4.25 M/mm3 (4.1-5.4); Red Cell Distribution Width 14.8 % (11.5-14.0); White Blood Count 5.4 K/mm3 (4.0-10.5)
[2018-05-12 13:13] LABS: ALBUMIN 4.4 g/dL (3.5-5.0); ANION GAP 15.7 MEQ/L (5-15); BILIRUBIN,TOTAL 0.8 mg/dL (0.2-1.3); Calcium 9.6 mg/dL (8.4-10.2); Creatinine 1 1.92 mg/dL (0.52-1.04); Potassium 4.1 mmol/L (3.5-5.1)
--- NOTE | 2018-05-12 13:16 | XRAY ---
Indication: Confusion. Comparison: July 23, 2016. Portable chest unchanged again demonstrating lingular atelectasis/scarring, cardiomegaly with CABG surgery, and aortic calcifications. Bony thorax intact again with osteopenia and degenerative changes. No new/acute findings.
[2018-05-12 13:45] LABS: Appearance CLEAR (CLEAR); Bilirubin NEGATIVE (NEGATIVE); Glucose NEGATIVE (NEGATIVE); Ketones NEGATIVE (NEGATIVE); Leukocyte Esterase NEGATIVE (NEGATIVE); Nitrite NEGATIVE (NEGATIVE); Protein,Urine Dip NEGATIVE (Negative); Specific Gravity 1.005 (1.005-1.025); Urobilinogen NORMAL mg/dL (0-1)
[2018-05-12 13:46] LABS: Blood NEGATIVE Ery/ul (0-5)
[2018-05-12] MEDS ORDERED: Zofran 4 MG/2 ML VIAL IV PRN (14:33)
[2018-05-12] MEDS ORDERED: TYLENOL 325 MG PO PRN (14:33)
[2018-05-12] MEDS: Sodium Chloride 0.9% 1000 ML 1,000 ML IV SCH (15:27)
[2018-05-12] MEDS ORDERED: NORVASC 5 MG PO ONE (15:33)
[2018-05-12] MEDS ORDERED: Coumadin 1 MG PO SCH (16:30)
[2018-05-12] MEDS ORDERED: Cyanocobalamin B-12 1000 MCG/ML IM SCH (16:30)
[2018-05-12] MEDS ORDERED: VITAMIN D2 PO SCH (17:00)
[2018-05-12] MEDS ORDERED: NON-FORMULARY ITEM (Warfarin Sodium [Coumadin] 4 MG) PO SCH (17:00)
[2018-05-12] MEDS ORDERED: Coumadin 3 MG PO SCH (18:00)
[2018-05-12] MEDS: Apresoline 25 MG TABLET PO PRN (18:46)
[2018-05-12] MEDS: Colace 100 MG PO SCH (21:20)
[2018-05-12] MEDS: Lopressor 25MG Tab PO SCH (21:20)
[2018-05-13 02:07] LABS: BASOPHIL % 0.5 % (0.0-0.4); Basophil (Absolute #) 0.03 (0-0.4); Eosinophil % 3.5 % (0.00-5.0); Granulocyte Absolute (ANC) 4.04 (1.4-6.9); Granulocytes % 70.8 % (36.0-66.0); Hematocrit 34.2 % (35-47); Hemoglobin 11.3 gm/dl (12.0-16.0); Lymphocyte (Absolute #) 1.08 (1.0-4.6); Lymphocytes % 18.9 % (24.0-44.0); Mean Cell Volume 88.4 fl (78-100); Mean Platelet Volume 10.8 fl (6-9.5); Monocyte (Absolute #) 0.36 (0.0-1.3); Monocytes % 6.3 % (0.0-12.0); Platelet Count 279 K/mm3 (150-450); Red Blood Count 3.87 M/mm3 (4.1-5.4); Red Cell Distribution Width 14.6 % (11.5-14.0); White Blood Count 5.7 K/mm3 (4.0-10.5)
[2018-05-13] MEDS: Sodium Chloride 0.9% 1000 ML 1,000 ML IV SCH (02:08)
[2018-05-13 02:12] LABS: Mean Corpuscular Hemoglobin 29.1 pg (26-32)
[2018-05-13 02:22] LABS: INR 3.1 (0.8-3.0)
[2018-05-13 04:06] LABS: ANION GAP 14.6 MEQ/L (5-15); Calcium 8.9 mg/dL (8.4-10.2); Creatinine 1 1.75 mg/dL (0.52-1.04)
[2018-05-13] MEDS: Apresoline 25 MG TABLET PO PRN ×2 (04:10→09:55)
--- NOTE | 2018-05-13 08:09 | HP ---
HISTORY OF PRESENT ILLNESS: This is an 82 year-old woman with history of dementia, vitamin B12 deficiency, hypothyroidism, diabetes mellitus type 2, coronary artery disease who is cared for at home by her . He has had increasing difficulty with caring for her and reports that she also will not comply with cleaning herself up and today would not let him check her finger stick for her international normalized ratio. Our resident care aid, Odette Cardoza, has been working with him and with [facility] to try to see what we can do about a respite stay for her there but that has not been finalized yet. He called today and said that he could not get her blood checked and he was having increasing problems caring for her and he has expressed in the past increasing problems caring for her. He was instructed that if she was not being compliant with what she needed to do to help care for herself to call the ambulance and have her brought to the emergency department which they did. The emergency room noted that she had fecal material on her feet. Her reported that within the past two days she had been in the bathroom and had an accident and that there was stool all over but she denied that she did that. The emergency room also reported that she was soaked in urine. In the emergency room she was also found to have an elevated creatinine above her baseline so she was admitted for IV fluids and further observation. Discharge planning to help with her disposition so that she can receive the appropriate care with her underlying dementia. REVIEW OF SYSTEMS: The patient denies any pain, denies any problems. She just had a bath but states she cannot remember getting it although her nurse verifies that she just had a bath so the review of systems is unobtainable due to her dementia. PAST MEDICAL HISTORY: Vitamin B12 deficiency, hypothyroidism, coronary artery disease, atrial fibrillation which she is on Coumadin for. PAST SURGICAL HISTORY: Cardiac surgery with bypass in the past. Hernia repair x3 without success. She still has a large abdominal wall hernia. MEDICATIONS: Please see the home medication reconciliation list. ALLERGIES: IN THE OLD CHART NO KNOWN DRUG ALLERGIES. SOCIAL HISTORY: She lives at home with her . She had been at [facility] in the past after a hospitalization. She used to smoke but no longer does. FAMILY HISTORY: Her mother had heart disease and her father had diabetes. PHYSICAL EXAMINATION: VITAL SIGNS: Temperature current 98.3F, temperature max 98.9F, heart rate 61 to 76, respiratory rate 16 to 18, blood pressure 171 to 200 over 74 to 98. Oxygen saturation 94 to 98% on room air. GENERAL: The patient is oriented to place and person. She states the year is 1999 something and when I asked her who the President of [facility] is she said "I want to say Abel Jimenez but I am not sure who it is". CVS: She has a regular rate and rhythm. No murmurs, gallops or rubs are appreciated. CHEST: Clear to auscultation bilaterally. No crackles or wheezes. ABDOMEN: Soft, nontender. She has known abdominal wall hernia. No distension. No guarding. No rigidity. EXTREMITIES: No clubbing, cyanosis or edema. SKIN: Warm, dry and intact. LABORATORY DATA AND TESTS: Her creatinine was 1.92, glucose 116. CBC within normal limits. UA was negative. Chest x-ray was without any acute changes. ASSESSMENT AND PLAN: 1) ACUTE RENAL FAILURE WITH HISTORY OF CHRONIC KIDNEY DISEASE STAGE IV: Will continue with gentle IV fluid rehydration and recheck her BMP in the morning. 2) ALZHEIMER'S DEMENTIA: She most likely will need to be placed where she can be take care of as her as the sole caregiver is having trouble taking care of her at home as he reports she is often noncompliant with what he asks her to do. He has also reported in the past that she will take like a pound of lunch meat out of the refrigerator and either feed it to the dogs or leave it out so that it spoiled. 3) VITAMIN B12 DEFICIENCY: Will check her vitamin B12 level. 4) HYPOTHYROIDISM: Will check her TSH and continue her home medications. 5) HYPERTENSION: I have given her one dose of amlodipine 5 mg p.o., will continue with her home doses and also add PRN medication as well. 6) HISTORY OF CORONARY ARTERY DISEASE: Will continue with aspirin. 7) ATRIAL FIBRILLATION: Will continue with anticoagulation and have her international normalized ratio checked.
--- NOTE | 2018-05-13 08:29 | PCM.NOTE ---
Date and Time: 05/13/18823 Subjective Assessment: She denies any pain. She states she just wants to know where everyone is coming from. She thinks she is at home. - Review of Systems Constitutional: No Symptoms Eyes: No Symptoms Ears, Nose, & Throat: No Symptoms Respiratory: No Symptoms Cardiac: No Symptoms Abdominal/Gastrointestinal: No Symptoms Genitourinary Symptoms: No Symptoms Musculoskeletal: No Symptoms Skin: No Symptoms Neurological: No Symptoms Psychological: Memory Loss Objective Exam General Appearance: no apparent distress, alert, other (sitting up, eating breakfast) Neurologic Exam: alert, cooperative, normal mood/affect, other (says she is at home; says year is 2007; knows her full name) Skin Exam: normal color, warm, dry Respiratory Exam: normal breath sounds, lungs clear, No accessory muscle use, No prolonged expirations, No crackles/rales Cardiovascular Exam: regular rate/rhythm, normal heart sounds, No murmur, No friction rub, No gallop Gastrointestinal/Abdomen Exam: soft, normal bowel sounds, other (known abdominal wall hernia), No tenderness, No distention, No mass Extremity Exam: other (no c/c/e) OBJECTIVE DATA Vital Signs: Vital Signs - 24 hr Temp Pulse Resp BP Pulse Ox 05/13/18 06:53 98.1 F 71 18 175/84 96 05/13/18 03:00 99.5 F 79 19 171/93 94 L 05/12/18 23:00 98.5 F 61 19 164/77 95 05/12/18 19:30 182/79 05/12/18 18:15 98.5 F 75 18 173/74 96 05/12/18 16:00 197/94 05/12/18 15:29 98.3 F 64 18 200/98 94 L 05/12/18 15:26 98.3 F 64 18 200/98 94 L 05/12/18 14:39 98.0 F 66 18 178/95 97 05/12/18 13:24 65 18 187/83 99 05/12/18 12:40 98.9 F 76 18 171/74 98 Pain Assessment - Last Documented Pain Intensity 0 Pain Scale Used 0-10 Pain Scale Intake and Output: Intake & Output 05/11/18 05/12/18 05/13/18 05/14/18 06:59 06:59 06:59 06:59 Intake Total 1818 Output Total 650 Balance 1168 Weight 60.6 kg Lab Results: Lab Results-Last 24 Hours 05/12/18 05/12/18 05/12/18 Range/Units 12:49 12:50 12:50 WBC 5.4 (4.0-10.5) K/mm3 RBC 4.25 (4.1-5.4) M/mm3 Hgb 12.3 (12.0-16.0) gm/dl Hct 37.2 (35-47) % MCV 87.5 (78-100) fl MCH 28.9 (26-32) pg MCHC 33.1 (32-36) g/dl RDW 14.8 H (11.5-14.0) % Plt Count 300 (150-450) K/mm3 MPV 11.3 H (6-9.5) fl Gran % 70.7 H (36.0-66.0) % Eos # (Auto) 0.19 (0-0.5) Absolute Lymphs (auto) 1.03 (1.0-4.6) Absolute Monos (auto) 0.34 (0.0-1.3) Lymphocytes % 19.1 L (24.0-44.0) % Monocytes % 6.3 (0.0-12.0) % Eosinophils % 3.5 (0.00-5.0) % Basophils % 0.4 (0.0-0.4) % Absolute Granulocytes 3.81 (1.4-6.9) Basophils # 0.02 (0-0.4) PT (9.95-12.35) SECONDS INR (0.8-3.0) Sodium 140 (137-145) mmol/L Potassium 4.1 (3.5-5.1) mmol/L Chloride 101 (98-107) mmol/L Carbon Dioxide 27 (22-30) mmol/L Anion Gap 15.7 H (5-15) MEQ/L BUN 40 H (7-17) mg/dL Creatinine 1.92 H (0.52-1.04) mg/dL Estimated GFR 26.7 ML/MIN Glucose 116 H (74-106) mg/dL Lactic Acid 0.9 (0.4-2.0) Calcium 9.6 (8.4-10.2) mg/dL Total Bilirubin 0.80 (0.2-1.3) mg/dL AST 22 (14-36) U/L ALT 15 (0-35) U/L Alkaline Phosphatase 92 (38-126) U/L Troponin I (0.000-0.034) ng/mL Serum Total Protein 8.0 (6.3-8.2) g/dL Albumin 4.4 (3.5-5.0) g/dL Vitamin B12 (239-931) pg/mL TSH 3rd Generation (0.47-4.68) mIU/L Ur Collection Type Urine Color (YELLOW) Urine Appearance (CLEAR) Urine pH (5-6) Ur Specific [place] (1.005-1.025) Urine Protein (Negative) Urine Ketones (NEGATIVE) Urine Blood (0-5) Garth/ul Urine Nitrite (NEGATIVE) Urine Bilirubin (NEGATIVE) Urine Urobilinogen (0-1) mg/dL Ur Leukocyte Esterase (NEGATIVE) Urine Culture Reflexed (NO) Urine Glucose (NEGATIVE) mg/dL Specimen Received 05/12/18 05/12/18 05/12/18 Range/Units 12:50 13:14 14:10 WBC (4.0-10.5) K/mm3 RBC (4.1-5.4) M/mm3 Hgb (12.0-16.0) gm/dl Hct (35-47) % MCV (78-100) fl MCH (26-32) pg MCHC (32-36) g/dl RDW (11.5-14.0) % Plt Count (150-450) K/mm3 MPV (6-9.5) fl Gran % (36.0-66.0) % Eos # (Auto) (0-0.5) Absolute Lymphs (auto) (1.0-4.6) Absolute Monos (auto) (0.0-1.3) Lymphocytes % (24.0-44.0) % Monocytes % (0.0-12.0) % Eosinophils % (0.00-5.0) % Basophils % (0.0-0.4) % Absolute Granulocytes (1.4-6.9) Basophils # (0-0.4) PT (9.95-12.35) SECONDS INR (0.8-3.0) Sodium (137-145) mmol/L Potassium (3.5-5.1) mmol/L Chloride (98-107) mmol/L Carbon Dioxide (22-30) mmol/L Anion Gap (5-15) MEQ/L BUN (7-17) mg/dL Creatinine (0.52-1.04) mg/dL Estimated GFR ML/MIN Glucose (74-106) mg/dL Lactic Acid (0.4-2.0) Calcium (8.4-10.2) mg/dL Total Bilirubin (0.2-1.3) mg/dL AST (14-36) U/L ALT (0-35) U/L Alkaline Phosphatase (38-126) U/L Troponin I 0.013 < 0.012 (0.000-0.034) ng/mL Serum Total Protein (6.3-8.2) g/dL Albumin (3.5-5.0) g/dL Vitamin B12 (239-931) pg/mL TSH 3rd Generation (0.47-4.68) mIU/L Ur Collection Type VOID Urine Color YELLOW (YELLOW) Urine Appearance CLEAR (CLEAR) Urine pH 8.0 (5-6) Ur Specific [place] 1.005 (1.005-1.025) Urine Protein NEGATIVE (Negative) Urine Ketones NEGATIVE (NEGATIVE) Urine Blood NEGATIVE (0-5) Garth/ul Urine Nitrite NEGATIVE (NEGATIVE) Urine Bilirubin NEGATIVE (NEGATIVE) Urine Urobilinogen NORMAL (0-1) mg/dL Ur Leukocyte Esterase NEGATIVE (NEGATIVE) Urine Culture Reflexed NO (NO) Urine Glucose NEGATIVE (NEGATIVE) mg/dL Specimen Received 05/12/18 1330 05/12/18 05/12/18 05/12/18 Range/Units 14:10 15:35 19:23 WBC (4.0-10.5) K/mm3 RBC (4.1-5.4) M/mm3 Hgb (12.0-16.0) gm/dl Hct (35-47) % MCV (78-100) fl MCH (26-32) pg MCHC (32-36) g/dl RDW (11.5-14.0) % Plt Count (150-450) K/mm3 MPV (6-9.5) fl Gran % (36.0-66.0) % Eos # (Auto) (0-0.5) Absolute Lymphs (auto) (1.0-4.6) Absolute Monos (auto) (0.0-1.3) Lymphocytes % (24.0-44.0) % Monocytes % (0.0-12.0) % Eosinophils % (0.00-5.0) % Basophils % (0.0-0.4) % Absolute Granulocytes (1.4-6.9) Basophils # (0-0.4) PT 35.3 H (9.95-12.35) SECONDS INR 3.00 (0.8-3.0) Sodium (137-145) mmol/L Potassium (3.5-5.1) mmol/L Chloride (98-107) mmol/L Carbon Dioxide (22-30) mmol/L Anion Gap (5-15) MEQ/L BUN (7-17) mg/dL Creatinine (0.52-1.04) mg/dL Estimated GFR ML/MIN Glucose (74-106) mg/dL Lactic Acid (0.4-2.0) Calcium (8.4-10.2) mg/dL Total Bilirubin (0.2-1.3) mg/dL AST (14-36) U/L ALT (0-35) U/L Alkaline Phosphatase (38-126) U/L Troponin I < 0.012 (0.000-0.034) ng/mL Serum Total Protein (6.3-8.2) g/dL Albumin (3.5-5.0) g/dL Vitamin B12 (239-931) pg/mL TSH 3rd Generation 3.840 (0.47-4.68) mIU/L Ur Collection Type Urine Color (YELLOW) Urine Appearance (CLEAR) Urine pH (5-6) Ur Specific [place] (1.005-1.025) Urine Protein (Negative) Urine Ketones (NEGATIVE) Urine Blood (0-5) Garth/ul Urine Nitrite (NEGATIVE) Urine Bilirubin (NEGATIVE) Urine Urobilinogen (0-1) mg/dL Ur Leukocyte Esterase (NEGATIVE) Urine Culture Reflexed (NO) Urine Glucose (NEGATIVE) mg/dL Specimen Received 05/12/18 05/12/18 05/13/18 Range/Units 22:24 Unknown 02:04 WBC (4.0-10.5) K/mm3 RBC (4.1-5.4) M/mm3 Hgb (12.0-16.0) gm/dl Hct (35-47) % MCV (78-100) fl MCH (26-32) pg MCHC (32-36) g/dl RDW (11.5-14.0) % Plt Count (150-450) K/mm3 MPV (6-9.5) fl Gran % (36.0-66.0) % Eos # (Auto) (0-0.5) Absolute Lymphs (auto) (1.0-4.6) Absolute Monos (auto) (0.0-1.3) Lymphocytes % (24.0-44.0) % Monocytes % (0.0-12.0) % Eosinophils % (0.00-5.0) % Basophils % (0.0-0.4) % Absolute Granulocytes (1.4-6.9) Basophils # (0-0.4) PT (9.95-12.35) SECONDS INR (0.8-3.0) Sodium (137-145) mmol/L Potassium (3.5-5.1) mmol/L Chloride (98-107) mmol/L Carbon Dioxide (22-30) mmol/L Anion Gap (5-15) MEQ/L BUN (7-17) mg/dL Creatinine (0.52-1.04) mg/dL Estimated GFR ML/MIN Glucose (74-106) mg/dL Lactic Acid (0.4-2.0) Calcium (8.4-10.2) mg/dL Total Bilirubin (0.2-1.3) mg/dL AST (14-36) U/L ALT (0-35) U/L Alkaline Phosphatase (38-126) U/L Troponin I < 0.012 0.018 (0.000-0.034) ng/mL Serum Total Protein (6.3-8.2) g/dL Albumin (3.5-5.0) g/dL Vitamin B12 484 (239-931) pg/mL TSH 3rd Generation (0.47-4.68) mIU/L Ur Collection Type Urine Color (YELLOW) Urine Appearance (CLEAR) Urine pH (5-6) Ur Specific [place] (1.005-1.025) Urine Protein (Negative) Urine Ketones (NEGATIVE) Urine Blood (0-5) Garth/ul Urine Nitrite (NEGATIVE) Urine Bilirubin (NEGATIVE) Urine Urobilinogen (0-1) mg/dL Ur Leukocyte Esterase (NEGATIVE) Urine Culture Reflexed (NO) Urine Glucose (NEGATIVE) mg/dL Specimen Received 05/13/18 05/13/18 05/13/18 Range/Units 02:04 02:04 02:04 WBC 5.7 (4.0-10.5) K/mm3 RBC 3.87 L (4.1-5.4) M/mm3 Hgb 11.3 L (12.0-16.0) gm/dl Hct 34.2 L (35-47) % MCV 88.4 (78-100) fl MCH 29.1 (26-32) pg MCHC 33.0 (32-36) g/dl RDW 14.6 H (11.5-14.0) % Plt Count 279 (150-450) K/mm3 MPV 10.8 H (6-9.5) fl Gran % 70.8 H (36.0-66.0) % Eos # (Auto) 0.20 (0-0.5) Absolute Lymphs (auto) 1.08 (1.0-4.6) Absolute Monos (auto) 0.36 (0.0-1.3) Lymphocytes % 18.9 L (24.0-44.0) % Monocytes % 6.3 (0.0-12.0) % Eosinophils % 3.5 (0.00-5.0) % Basophils % 0.5 (0.0-0.4) % Absolute Granulocytes 4.04 (1.4-6.9) Basophils # 0.03 (0-0.4) PT 36.5 H (9.95-12.35) SECONDS INR 3.10 H (0.8-3.0) Sodium 138 (137-145) mmol/L Potassium 4.0 (3.5-5.1) mmol/L Chloride 102 (98-107) mmol/L Carbon Dioxide 25 (22-30) mmol/L Anion Gap 14.6 (5-15) MEQ/L BUN 39 H (7-17) mg/dL Creatinine 1.75 H (0.52-1.04) mg/dL Estimated GFR 29.7 ML/MIN Glucose 120 H (74-106) mg/dL Lactic Acid (0.4-2.0) Calcium 8.9 (8.4-10.2) mg/dL Total Bilirubin (0.2-1.3) mg/dL AST (14-36) U/L ALT (0-35) U/L Alkaline Phosphatase (38-126) U/L Troponin I (0.000-0.034) ng/mL Serum Total Protein (6.3-8.2) g/dL Albumin (3.5-5.0) g/dL Vitamin B12 (239-931) pg/mL TSH 3rd Generation (0.47-4.68) mIU/L Ur Collection Type Urine Color (YELLOW) Urine Appearance (CLEAR) Urine pH (5-6) Ur Specific [place] (1.005-1.025) Urine Protein (Negative) Urine Ketones (NEGATIVE) Urine Blood (0-5) Garth/ul Urine Nitrite (NEGATIVE) Urine Bilirubin (NEGATIVE) Urine Urobilinogen (0-1) mg/dL Ur Leukocyte Esterase (NEGATIVE) Urine Culture Reflexed (NO) Urine Glucose (NEGATIVE) mg/dL Specimen Received Radiology Exams: Radiology Procedures Category Date Time Status CHEST 1 VIEW (PORTABLE) Stat Exams 05/12/18 12:50 Completed Assessment/Plan (1) Acute renal failure Current Visit: Yes Status: Acute Assessment & Plan: Improving with IV fluids. (2) Chronic kidney disease, stage IV (severe) Current Visit: Yes Status: Acute Code(s): N18.4 - CHRONIC KIDNEY DISEASE, STAGE 4 (SEVERE) (3) Alzheimer's dementia Current Visit: Yes Status: Chronic Assessment & Plan: She would benefit from placement at a nursing facility. Her is her primary geriatric personal care aide and has reported that she can become argumentative and not allow him to help care for her by refusing baths and refusing to have her finger pricked to have her INR checked at home with INR. Code(s): G30.9 - ALZHEIMER'S DISEASE, UNSPECIFIED (4) Coronary artery disease Current Visit: No Status: Chronic Qualifiers: Associated angina: without angina Assessment & Plan: Continue aspirin. Code(s): I25.10 - ATHSCL HEART DISEASE OF [place] CORONARY ARTERY W/O ANG PCTRS (5) Essential hypertension Current Visit: No Status: Chronic Assessment & Plan: Increase amlodpine from 5 mg to 10 mg and continue metoprolol. Hydralazine 12.5 mg po qid as needed. Code(s): I10 - ESSENTIAL (PRIMARY) HYPERTENSION (6) Paroxysmal atrial fibrillation Current Visit: Yes Status: Acute Assessment & Plan: Rate is controlled. Continue with coumadin for anticoagulation. Coumadin decreased from 3 mg on Mon, Wed, Fri and 2 mg all other days to 2 mg all days today. Continue daily INR. Code(s): I48.0 - PAROXYSMAL ATRIAL FIBRILLATION (7) Hypothyroidism Current Visit: Yes Status: Acute Assessment & Plan: Continue current dose of levothyroxine. TSH was normal. Code(s): E03.9 - HYPOTHYROIDISM, UNSPECIFIED (8) Vitamin B 12 deficiency Current Visit: Yes Status: Acute Assessment & Plan: Vit B12 injection given yesterday in the hospital. Her Vit B 12 level was checked and is in the normal range. Code(s): E53.8 - DEFICIENCY OF OTHER SPECIFIED B GROUP VITAMINS
[2018-05-13] MEDS: Colace 100 MG PO SCH (09:55)
[2018-05-13] MEDS: Lopressor 25MG Tab PO SCH (09:55)
[2018-05-13] MEDS ORDERED: NORVASC 5 MG PO SCH ×2 (10:00)
[2018-05-13] MEDS ORDERED: THERAGRAN MULTIVITAMIN PO SCH (10:00)
[2018-05-13] MEDS ORDERED: BABY ASPIRIN 81 MG CHEW PO SCH (10:00)
[2018-05-13] MEDS ORDERED: ECOTRIN 81 MG PO SCH (10:00)
[2018-05-13] MEDS ORDERED: SYNTHROID 75 MCG PO SCH (10:00)
--- NOTE | 2018-05-13 10:54 | PCM.DCORD ---
- Discharge Discharge Date: 05/13/18 Disposition: DC TO [facility] Condition: Fair Prescriptions: New HydrALAzine HCL 25 MG TAB [Apresoline 25 MG TABLET] 12.5 mg PO QID PRN tablet PRN Reason: Hypertension Warfarin Sodium 2 mg [Coumadin 2 MG] 2 mg PO DAILY@1800 tablet Amlodipine Besylate 5 mg [Norvasc 5 mg] 10 mg PO QAM tablet Acetaminophen 325 mg [Tylenol 325 mg] 650 mg PO Q4H PRN PRN tablet PRN Reason: Pain And/Or Fever Continue Docusate Sodium 100 mg [Colace 100 MG] 100 mg PO BID capsule Cyanocobalamin 1000 Mcg/ml [Cyanocobalamin B-12 1000 MCG/ML] 1,000 mcg IM Q30D vial Levothyroxine Sodium 75 Mcg [Synthroid 75 Mcg] 75 mcg PO DAILY tablet Multivitamins,Therapeutic Tab* [Theragran Multivitamin] 1 tab PO QAM tab Metoprolol Tartrate 25 mg [Lopressor 25MG Tab] 25 mg PO BID Ergocalciferol (Vitamin D2) [Vitamin D2] 50,000 unit PO Q7D Aspirin 81 gm Chew [Baby Aspirin 81 mg Chew] 1 tab PO DAILY Discontinued Amlodipine Besylate 5 mg [Norvasc 5 mg] 5 mg PO QAM tablet Warfarin Sodium 2 mg [Coumadin 2 MG] 2 mg PO UD Warfarin Sodium 3 mg [Coumadin 3 MG] 3 mg PO UD Additional Instructions: Check INR on 05/18/18 with diagnosis of skilled nursing anticoagulation. Fall precautions. Follow up with: SILVINO MILLER [Primary Care Provider] - 1 Week
[2018-05-13 11:39] VITALS: BP 199/95; PULSE 62; O2SAT 92
[2018-05-13] MEDS ORDERED: Coumadin 2 MG PO SCH ×2 (18:00)
== END 2018-05-13 13:55 ==
LOC: ED 12:33 → MED SURG 14:52 → UNDODISOB 05-13 10:25
PROVIDERS: ADMIT Internal Medicine; ATTEND Internal Medicine
DX: E53.8 Deficiency of other specified B group vitamins (principal); E03.9 Hypothyroidism, unspecified; E11.9 Type 2 diabetes mellitus without complications; I25.10 Atherosclerotic heart disease of native coronary artery without angina pectoris; I48.91 Unspecified atrial fibrillation; Z79.01 Long term (current) use of anticoagulants; G30.9 Alzheimer's disease, unspecified; F02.80 Dementia in other diseases classified elsewhere, unspecified severity, without behavioral disturbance, psychotic disturbance, mood disturbance, and anxiety; I12.9 Hypertensive chronic kidney disease with stage 1 through stage 4 chronic kidney disease, or unspecified chronic kidney disease; N18.4 Chronic kidney disease, stage 4 (severe); Z23 Encounter for immunization
CPT/HCPCS: 36415; 71045; 80048; 80053; 81002; 82607; 83605; 84443; 84484; 85025; 85610; 93005; 99285; G0378; P9612; J3420; A9270-GY